=== PATIENT | female | born 1975 | race Two or more races ===

== ENCOUNTER 2021-12-20 11:04 | Emergency (ER) | payer MEDICAID ==
[2021-12-20] MEDS ORDERED: Ketorolac 30 MG/ML SDV IVPUSH ONE (12:42)
[2021-12-20] MEDS ORDERED: fentaNYL 50 MCG/ML SDV IVPUSH ONE (13:40)
[2021-12-20] MEDS ORDERED: Ondansetron 4 MG/2 ML SDV IVPUSH ONE (13:41)
[2021-12-20] MEDS ORDERED: oxyCODONE 5 MG Tab PO ONE (15:39)
[2021-12-20] MEDS ORDERED: Iopamidol 755 MG/ML 500 ML Multipack Bottle IVPUSH ONE (16:12)
== END 2021-12-20 16:23 | disposition home or self-care (01) ==
LOC: MW.ED 11:04
DX: K52.9 Noninfective gastroenteritis and colitis, unspecified (principal); E03.9 Hypothyroidism, unspecified; Z79.899 Other long term (current) drug therapy; Z20.822 Contact with and (suspected) exposure to COVID-19
CPT/HCPCS: 36415; 74177; 83690; 84703; 87635; 96374; 96375; 99284; A9270; J1885; J2405; J3010; Q9967; U0002

== ENCOUNTER 2024-04-19 14:49 | Emergency (ER) | payer OTHER, MEDICAID ==
[2024-04-19] MEDS: Bacitracin Oint 1 GM U/D Packet TOP ONE (16:10)
[2024-04-19] MEDS: Lidocaine 1% PF 2 ML SDV INJECT ONE (16:10)
[2024-04-19] MEDS: Diphtheria,Pertussis(Acell),Tetanus Vaccine 0.5 ML Syringe IM ONE (16:11)
[2024-04-19] MEDS: Cyclobenzaprine 10 MG Tab PO ONE (17:15)
[2024-04-19] MEDS: Ibuprofen 600 MG Tab PO ONE (17:16)
== END 2024-04-19 18:56 | disposition home or self-care (01) ==
LOC: MW.ED 14:49
DX: S09.90XA Unspecified injury of head, initial encounter (principal); S01.81XA Laceration without foreign body of other part of head, initial encounter; E03.9 Hypothyroidism, unspecified; Z75.8 Other problems related to medical facilities and other health care; Z23 Encounter for immunization; Z79.899 Other long term (current) drug therapy; W11.XXXA Fall on and from ladder, initial encounter; Y93.39 Activity, other involving climbing, rappelling and jumping off
CPT/HCPCS: 12011; 70450; 72125; 72131; 72192; 73502; 90471; 90715; 99284; A9270; 99283; J3490